=== PATIENT | female | born 1980 | race Caucasian/White ===

== ENCOUNTER → 2016-02-09 | Outpatient (CLI) | payer OTHER | LOC: COL.RAD 09:23 | DX: N97.9 Female infertility, unspecified (principal) | CPT/HCPCS: Q9967 ==

== ENCOUNTER 2017-11-20 10:38 | Emergency (ER) | payer OTHER ==
[~2017-11-20] VITALS: Ht 157.5 cm; Wt 68.2 kg
[2017-11-20 10:40] VITALS: BP 102/69; TEMP 98.5
[2017-11-20] MEDS ORDERED: PREDNISONE20 MG PO (10:44)
[2017-11-20] MEDS ORDERED: PERCOCET 325 MG1 TA2 PO (10:44)
[2017-11-20] MEDS ORDERED: LIDODERM 5% PATC1 EA TP (10:44)
[2017-11-20] MEDS ORDERED: NORFLEX 30M30 MG/AMP IJ (10:45)
[2017-11-20] MEDS ORDERED: FLEXERIL 1010 MG/TAB PO (10:45)
[2017-11-20] MEDS ORDERED: KETOROLAC30 MG/ML IM (10:45)
[2017-11-20] MEDS ORDERED: NEURONTIN600 MG/TAB PO (13:37)
[2017-11-20 13:40] VITALS: PULSE 70
== END 2017-11-20 13:43 | disposition home or self-care (01) ==
LOC: COL.ER 10:38
DX: M54.5 Low back pain (principal)
CPT/HCPCS: J1630; J1885; J2060; J7030